=== PATIENT | female | born 1965 | race Caucasian/White ===

== ENCOUNTER 2017-01-06 14:16 | Emergency (ER) | payer MEDICAID, OTHER ==
[~2017-01-06] VITALS: Ht 157.5 cm; Wt 60.8 kg
[~2017-01-06 14:16] MED LIST: MEGE400O PO; MIRT15TA3 PO; OMEP20CA4 PO; PARO40TA PO; QUET50TA PO; TRAZ-144 PO
[2017-01-06] MEDS ORDERED: CLON1TAB4 PO (14:53)
--- NOTE | 2017-01-06 14:53 | NUR ---
PER PT REPORT SOME MEDS PREVIOUSLY REPORTED HAD BEEN DISCONTINUED BY PT - OMEPRAZOLE, SEROQUEL, REMERON AND MEGACE.
--- NOTE | 2017-01-06 14:53 | NUR ---
LAB SHAR BLOOD,URINE SENT,EKG DONE, PT'S DAUGHTER AT THE BEDSIDE.
[2017-01-06 15:00] LABS: *BILIRUBIN,URIN 2+ (NEGATIVE); *BLOOD, URINE NEGATIVE (NEGATIVE); *CLARITY,URINE SLIGHTLY CLOUDY (CLEAR); *COLOR,URINE YELLOW (YELLOW); *KETONES,URINE TRACE (NEGATIVE); *PROTEIN,URINE 1+ (NEGATIVE); LEUKOCYTE ESTERASE ,URINE NEGATIVE (NEGATIVE); NITRITE, URINE NEGATIVE (NEGATIVE); PH,URINE 5.5 (5.0-8.0); UGLUCOSE NEGATIVE (NEGATIVE)
[2017-01-06 15:01] LABS: *URINE HCG, QUAL NEGATIVE (NEGATIVE)
[2017-01-06 15:04] LABS: BACTERIA,URINE FEW /HPF (NONE SEEN); CALCIUM OXALATE CRYSTALS,UR FEW /HPF (NONE SEEN); RBC,URINE 0-3 /HPF (0-3); SQUAMOUS EPITHELIAL CELL,UR FEW /HPF (NONE SEEN); WBC,URINE 0-3 /HPF (0-3)
[2017-01-06 15:16] LABS: BASOPHILS # (AUTO) 0.1 K/uL (0.0-8.0); BASOPHILS % (AUTO) 0.9 % (0.0-2.0); EOSINOPHILS # (AUTO) 0.1 K/uL (0.0-0.7); EOSINOPHILS % (AUTO) 1.3 % (0.0-7.0); LYMPHOCYTES # (AUTO) 2.4 K/UL (0.8-4.8); LYMPHOCYTES % (AUTO) 32.2 % (20.5-51.5); MEAN CORPUSCULAR HEMOGLOBIN 28.3 UUG (27.0-31.0); MEAN CORPUSCULAR HGB CONC 33 g/dL (32.0-37.0); MEAN CORPUSCULAR VOLUME 87.1 FL (81.0-99.0); MONOCYTES # (AUTO) 0.4 K/UL (0.1-1.30); NEUTROPHILS # (AUTO) 4.4 K/UL (1.8-8.9); NEUTROPHILS % (AUTO) 60.6 % (38.5-71.5); PLATELET COUNT (AUTO) 257 K/UL (150-450); RED BLOOD CELL COUNT(AUTO) 4.94 MIL/UL (4.2-5.4); WHITE BLOOD COUNT (AUTO) 7.4 K/UL (4.0-11.2)
[2017-01-06 15:17] LABS: CARBON DIOXIDE 35 mmol/L (21-32); CHLORIDE 102 mmol/L (98-107); GLUCOSE 138 mg/dL (74-106); POTASSIUM 3.6 mmol/L (3.5-5.1); UREA NITROGEN, BLOOD 16 mg/dL (7-18)
[2017-01-06 15:22] LABS: ACETAMINOPHEN 8.3 ug/mL (10-30); ALANINE AMINOTRANSFERASE 56 U/L (14-59); ALKALINE PHOSPHATASE 77 U/L (50-136); ASPARTATE AMINOTRANSFERASE 20 U/L (15-37); BILIRUBIN,DIRECT 0.1 mg/dL (0.0-0.2); BILIRUBIN,TOTAL 0.4 mg/dL (0.2-1.0); TOTAL PROTEIN, SERUM 7.2 g/dL (6.4-8.2)
[2017-01-06 15:33] LABS: ETHANOL < 3 MG/DL (0-0)
[2017-01-06 15:34] LABS: *AMPHETAMINE, URINE NEGATIVE (NEGATIVE); *BARBITURATE, URINE NEGATIVE (NEGATIVE); *CANNABINOID, URINE POSITIVE (NEGATIVE); *COCCAINE, URINE NEGATIVE (NEGATIVE); *OPIATE, URINE NEGATIVE (NEGATIVE); *PHENCYCLIDINE SCREEN,URINE NEGATIVE (NEGATIVE)
--- NOTE | 2017-01-06 15:57 | NUR ---
LAURO FROM THE CRISIS TEAM CALLED SPOKE TO GE MCKEON WHOM STATED LAURO SAID "IT WAS GOING TO BE A WHILE. THAT SHE WAS NOT CLOSE.
--- NOTE | 2017-01-06 16:10 | NUR ---
PT RESTING, WATCHING TV.
--- NOTE | 2017-01-06 17:15 | NUR ---
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
--- NOTE | 2017-01-06 18:14 | NUR ---
PT WAS MEDICALLY CL;EARED AND PET EVALUATED BY LAURO WHOM DID NOT PLACE PT IN A HOLD. LAURO HANDED THE PT AND HER FRIEND A LIST OF RESOURCES. PT TOOK ALL BELONGINGS AND AMBULATED W/O DIFF.
[2017-01-06 18:16] VITALS: BP 101/61
== END 2017-01-06 18:17 | disposition home or self-care (01) ==
LOC: ER 14:16
DX: Z02.89 Encounter for other administrative examinations (principal); F32.9 Major depressive disorder, single episode, unspecified; K21.9 Gastro-esophageal reflux disease without esophagitis
CPT/HCPCS: 36415; 71010; 80307; 84703; 85025; 93005; A4663; G0480; G0480-TC